=== PATIENT | female | born 1990 | race Caucasian/White ===

== ENCOUNTER 2021-10-10 17:12 | Inpatient (IN) ==
[2021-10-10] MEDS ORDERED: OXYTOCIN 30 UNITS/500 ML BAG IV PRN ×2 (19:43)
--- NOTE | 2021-10-10 19:46 | History & Physical Report ---
Date of Service October 10, 2021 Assessment & Plan (1) Insulin controlled gestational diabetes mellitus (GDM) during : (2) : Plan: 31 y/o G1 at 39 5/7 wga presents for r/o rom VSS Fetus cat 1 r/o ROM - cannot definitively say rom occurred however there is still more bleeding than expected following cervical check. Pt is set to be induced tomorrow so will admit tonight, let her eat dinner and start pitocin overnight when able A2GDM - q2h BG, plan for q1 in active labor GBS neg epidural PRN History of Present Illness Chief Complaint: IOL Primary Care Provider: NO PCP 31 y/o G1 at 39 5/7 wga presented earlier this evening w/ c/o LOF a few hours after being checked in the office. +FM, ctx and some bleeding as well. Initial exam was inconclusive for rupture and so pt was regraced and exam was re-done, could not find evidence of rupture however pt continued to have more bleeding than expected given check. 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 Menarche 11, q28d cycles Denies hx STIs Denies hx abnl pap, 01/2021 neg cotest Allergies Allergy/AdvReac Type Severity Reaction Status Date / Time No Known Allergies Allergy Verified 10/10/21 10:17 Home Medications Medication Instructions Recorded Confirmed Type insulin detemir U-100 100 unit/mL 4 unit SUBCUT HS 09/12/21 10/10/21 History subcutaneous solution (Levemir U-100 Insulin) prenat.vits,monico,[id number] 1 tab PO DAILY 09/12/21 10/10/21 History breast pump #1 ea 09/24/21 10/10/21 Rx Patient History Medical History IUGR (intrauterine growth restriction) Low maternal weight gain Varicella vaccine Surgical History No history of previous surgery No significant past surgical history Family History Mother Diabetes Denies family history of Ovarian cancer Breast cancer Lung cancer Cancer Hypertension Social History Smoking Status: Never smoker Hx Alcohol Use: No Hx Substance Use: No Preferred Language: Syriac Communication Ability: Effective Communication Tools: IPad Visual Impairment: Partially Limited Hearing Ability: Normal 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 Beliefs That Will Affect Care: None marital status: marital status details: Kay Pak (33) [phone] Current Living Situation: Spouse Current Living Situation Comment: , no pets current occupational status: unemployed Other Information That Helps Us Care for You: No Feels Safe at Home: Yes Safety Concerns: Feels Safe At This Time Do you think of yourself as: straight/heterosexual Gender Identity: Female Assistive Devices: None Physical Exam Genitourinary: OB Exam Abdomen: + vertex and + estimated weight (6-7) Manual OB Exam: + cervical dilation 3 cm, + cervical effacement 50% and + station -2 OB Exam Monitor Tracing: + external FHT monitor used, + external uterine monitor used (q4-6) and + category I (150/mod/+accel/-decel) SSE - dark blood in vault, 3 large procto swabs used to clear blood but still difficult to visualize cervix in its entirety. Nitrazine not performed due to bleeding, no clear pooling, neg ferning Results & Data ([facility]) Vital Signs (Past 12 Hours) Vital Signs Temp Pulse Resp BP 10/10/21 18:55 98.4 F 20 10/10/21 18:54 72 104/60 10/10/21 17:20 97.7 F 72 16 101/60 Laboratory Results OB Optional Labs: No Data to Display Labs Reviewed: Glucose 07/02/21 *fasting 84 *1 hour 216 *2 hour 156 *3 hour 152 Glucose 06/27/21 *1 hour 168 [id number] PLUS Core + SCA 05/16/21 (NIPT) * WNL NuSwab Vaginitis *Normal Initial OB Labs 02/26/21 Blood Type & RH - A positive Antibody Screen - negative HCT/HGB - 13.6/38.3 Platelets - 293 Hep C IgG 13yrs+ Old - negative Pap Test - HPV negative Chlamydia - negative Gonorrhea - negative Rubella - immune RPR - non reactive Urine Culture/Screen - Normal HBsAg - negative HIV - negative MCV - 88 Ultrasound -hemoglobin electrophoresis wnl 06/28 H/H 11.3/34.8 PLT 288 anatomy - SGA 13% anatomy, 5% at 24 weeks 07/24/21 - IGS 14%, glucose log normal 08/16/21 - IGS 8% GBS neg Coding Level of Care Code None Diagnoses Insulin controlled gestational diabetes mellitus (GDM) during O24.414 Z34.90
[2021-10-10 20:06] LABS: Hematocrit (blood only) 37.2 % (37-47); Hemoglobin 12.6 g/dL (12.0-16.0); Mean Corpuscular Hemoglobin 32.1 pg (25-34); Mean Corpuscular Hgb Conc 33.9 g/dL (32-36); Mean Corpuscular Volume 94.7 fL (80-100); Mean Platelet Volume 11.1 fL (7.4-10.4); Platelet Count 228 K/uL (130-400); RDW Coefficient of Variation 14.6 % (11.5-14.5); Red Blood Count 3.93 M/uL (4.2-5.4); White Blood Count 10.72 K/uL (4.8-10.8)
[2021-10-11] MEDS: LACTATED RINGER'S 1,000 ML IV PRN ×3 (08:20→20:40)
[2021-10-11] MEDS ORDERED: ePHEDrine sulfate 50 MG/ML AMP ONE (12:34)
[2021-10-11] MEDS ORDERED: BUPIVACAINE 0.25% 30 ML VIAL ONE (12:35)
[2021-10-11] MEDS ORDERED: fentaNYL citrate 100 MCG/2 ML VIAL ONE (12:35)
[2021-10-11] MEDS ORDERED: SODIUM CHLORIDE 0.9% INJ 10 ML VIAL ONE (12:35)
[2021-10-11] MEDS ORDERED: fentaNYL 2MCG/ML ROPIVACAINE 1.25MG/ML 100 ML BAG EPI ONE (12:36)
[2021-10-11] MEDS ORDERED: fentaNYL 2MCG/ML ROPIVACAINE 1.25MG/ML 100 ML BAG EPI PRN (12:56)
[2021-10-11] MEDS ORDERED: NALOXONE HCL 0.4 MG/1 ML VIAL/CARP IV PRN (12:56)
[2021-10-11] MEDS ORDERED: diphenhydrAMINE 50 MG/ML VIAL IV PRN (12:56)
[2021-10-11] MEDS ORDERED: NALOXONE HCL 1 MG in SODIUM CHLORIDE 0.9% 1000ML 1,000 ML IV PRN (12:56)
[2021-10-11] MEDS ORDERED: NALBUPHINE HCL INJ 10 MG/ML AMP IV PRN (12:56)
[2021-10-11] MEDS ORDERED: ePHEDrine sulfate 50 MG/ML AMP IV PRN (12:56)
[2021-10-11] MEDS ORDERED: ONDANSETRON INJ 2 MG/ML 2 ML VIAL IV PRN (12:56)
--- NOTE | 2021-10-11 12:56 | Anesthesiology Consultation ---
Date of Service October 11, 2021 Assessment & Plan (1) Encounter for pre-operative examination: Chart Review Chart Review: Acceptable Risk for Surgery and Patient NOT seen in Pre Admission Testing Consults Requested none History Height/Weight Height: 5 ft 2.6 in Weight: 79.107 kg Allergies Allergy/AdvReac Type Severity Reaction Status Date / Time No Known Allergies Allergy Verified 10/10/21 10:17 Medications Home Medications Medication Instructions Recorded Confirmed Last Taken insulin detemir U-100 100 unit/mL 4 unit SUBCUT HS 09/12/21 10/10/21 10/09/21 23:00 subcutaneous solution (Levemir U-100 Insulin) prenat.vits,monico,[id number] 1 tab PO DAILY 09/12/21 10/10/21 10/09/21 16:00 breast pump #1 ea 09/24/21 10/10/21 Unknown Active Medications Generic Name Dose Route Start Last Admin Trade Name Freq PRN Reason Stop Dose Admin Lactated Ringer's 1,000 mls @ 125 mls/hr 10/10/21 19:43 10/11/21 08:20 Lr IV 10/12/21 19:42 125 mls/hr .Q8H PRN Administration L&D Protocol Protocol Oxytocin 30 units in 500 mls @ 14 mls/hr 10/10/21 19:43 10/11/21 11:47 Pitocin IV 10/12/21 19:42 0.84 units/hr .Q24H PRN 14 mls/hr Labor Induction/Augmentation Titration Protocol 0.84 UNITS/HR Past Medical History Medical History IUGR (intrauterine growth restriction) Low maternal weight gain Varicella vaccine Past Family History Family History Mother Diabetes Denies family history of Ovarian cancer Breast cancer Lung cancer Cancer Hypertension Past Surgical History Surgical History No history of previous surgery No significant past surgical history Social History Smoking Status: Never smoker Hx Alcohol Use: No Hx Substance Use: No substance use type: does not use Physical Exam Vital Signs Last Vital Signs Temp 36.5 C 10/11/21 11:04 Pulse 67 10/11/21 12:32 Resp 18 10/11/21 11:04 BP 105/60 10/11/21 12:32 Testing Laboratory Results 10/10/21 19:55 10/11/21 10/11/21 10/11/21 12:03 10:03 07:59 POC Glucose 91 94 104 H 10/11/21 10/11/21 10/11/21 06:00 04:44 02:21 POC Glucose 94 94 105 H
--- NOTE | 2021-10-12 00:32 | Delivery Summary ---
Vaginal Delivery Summary Date of Service October 12, 2021 Vaginal Delivery Summary and 2nd Degree LAC Vaginal Delivery Summary: Pre-delivery diagnoses: 31yo @ 39 6/7, IOL for GDMA2 Post-delivery diagnoses: same Procedure: spontaneous vaginal delivery Surgeon: Sheila Bennett DO Complications: none Findings: Viable female . Apgars: 8/9. Weight pending, please see nursery records Estimated blood loss: 400ml Description of delivery: The patient progressed to complete with epidural anesthesia. She then began to push. She spontaneously vaginally delivered a viable from the cephalic presentation. The head delivered in KAREN position. The anterior shoulder delivered, followed by the posterior shoulder, followed by the body. No nuchal. The baby was placed on mother's abdomen and a spontaneous cry was heard. Delayed cord clamping was employed, and the cord was doubly clamped and cut. Cord blood was obtained. The placenta was delivered spontaneously intact with a 3-vessel cord. The uterus and vagina were swept of clots and debris. IV pitocin was given. The uterus became firm. The cervix, vagina, and perineum were inspected and a 2nd degree perineal laceration was reapproximated with 3-0 vicryl in standard fashion. Aamir powder was used along the raw edges to obtain hemostasis. Excellent hemostasis was observed. The mother and baby are recovering in stable and good condition in the room. Sponge, needle and instrument counts were correct x 2. Sheila Bennett DO [id number] Vaginal Delivery Charge Vaginal Delivery Codes: 03379 global code for the antepartum, delivery, and post- Delivery Type Details: and 2nd Degree LAC
[2021-10-12] MEDS ORDERED: bisacodyL 10 MG SUPP PR PRN (00:37)
[2021-10-12] MEDS ORDERED: DIPHTHERIA/TETANUS/PERTUSSIS 0.5 ML SYR/VIAL IM ONE (00:37)
[2021-10-12] MEDS ORDERED: HYDROCORTISONE ACETATE 25 MG SUPP PR PRN (00:37)
[2021-10-12] MEDS ORDERED: oxyCODONE/ACETAMINOPHEN 5mg/325mg TAB PO PRN (00:37)
[2021-10-12] MEDS ORDERED: BENZOCAINE 20% AER SPR 82.5 GM CAN EXT PRN (00:37)
[2021-10-12] MEDS ORDERED: OXYTOCIN 30 UNITS/500 ML BAG IV PRN (00:37)
[2021-10-12] MEDS: IBUPROFEN 600 MG TAB PO PRN ×4 (01:05→23:48)
--- NOTE | 2021-10-12 06:06 | Obstetrical Progress Note ---
Date of Service <Yary Smith DO - Last Filed: 10/12/21 07:36> October 12, 2021 Assessment & Plan <Yary Smith DO - Last Filed: 10/12/21 07:36> (1) Insulin controlled gestational diabetes mellitus (GDM) during : (2) Encounter for care and examination after delivery: 31 yo post op day1 from with GDM, doing well. -Continue routine post care. -vital signs reviewed and WNL (Tmax 36.8) -Blood Type A+, GBS-, Rubella immune -Encourage ambulation, monitor and control pain with Motrin, tylenol PRN, resume regular diet, monitor lochia -encourage breast feeding -hemoglobin 12.6 Day #:: 1 <Sheila Bennett, - Last Filed: 10/12/21 07:55> (1) Insulin controlled gestational diabetes mellitus (GDM) during : (2) Encounter for care and examination after delivery: Subjective <Yary Smith - Last Filed: 10/12/21 07:36> Ambulation: ambulating normally Voiding: voiding difficulty Passing Gas:: Yes Diet Tolerance:: regular diet Lochia:: Small Feeding Type:: breast feeding Current Pain Level(1-10): 0 Review of Systems Denies fever, chills, sweats Denies shortness of breath, difficulty breathing, chest pain, palpitations, chest pressure. Denies breast pain. Denies dysuria. Denies headache or changes in vision. Physical Exam <Yary Smith - Last Filed: 10/12/21 07:36> General: Alert, oriented. No acute distress. Cardiac: Regular rate and rhythm, no murmurs/rubs/gallops. Respiratory: Clear to auscultation bilaterally a/p, no wheezes/rales/rhonchi. No increased work of breathing. Symmetrical chest rise. No respiratory distress. Abdomen: Soft, nontender, nondistended. Bowel sounds present. Uterus: Uterine fundus firm, palpable 1 cm below umbilicus. Lower Extremities: No lower extremity edema or swelling. No deep calf pain. Robert's negative bilaterally.. Results & Data ([facility]) <Yary Luis - Last Filed: 10/12/21 07:36> Vital Signs (Past 12 Hours) Vital Signs Temp Pulse Resp BP BP Pulse Ox 10/12/21 03:00 36.8 C 18 112/68 10/12/21 02:22 111 H 110/62 10/12/21 02:21 36.9 C 18 10/12/21 02:06 118 H 113/52 L 10/12/21 01:51 111 H 18 111/66 10/12/21 01:36 110 H 116/62 10/12/21 01:21 104 H 18 113/62 10/12/21 01:06 99 H 18 121/60 10/12/21 00:51 96 H 16 130/69 10/12/21 00:44 101 H 96 10/12/21 00:39 99 H 96 10/12/21 00:36 100 H 16 128/68 10/12/21 00:34 98 H 97 10/12/21 00:29 101 H 98 10/12/21 00:24 108 H 98 10/12/21 00:21 102 H 16 123/62 10/12/21 00:19 103 H 97 10/12/21 00:14 101 H 97 10/12/21 00:10 101 H 129/62 10/12/21 00:09 105 H 97 10/12/21 00:06 109 H 132/64 10/12/21 00:04 112 H 98 10/11/21 23:59 103 H 97 10/11/21 23:54 114 H 98 10/11/21 23:51 117 H 132/65 10/11/21 23:49 116 H 97 10/11/21 23:44 106 H 78 L 10/11/21 23:39 108 H 97 10/11/21 23:37 37.1 C 18 10/11/21 23:36 99 H 125/67 10/11/21 23:35 104 H 91 10/11/21 23:34 100 H 97 10/11/21 23:29 111 H 95 10/11/21 23:24 96 H 96 10/11/21 23:23 101 H 91 10/11/21 23:22 97 H 135/68 10/11/21 23:19 115 H 96 10/11/21 23:14 103 H 95 10/11/21 23:09 106 H 97 10/11/21 23:06 95 H 131/81 10/11/21 23:04 89 98 10/11/21 22:59 102 H 98 10/11/21 22:54 88 98 10/11/21 22:53 95 H 94 10/11/21 22:51 97 H 134/79 10/11/21 22:49 94 H 98 10/11/21 22:44 86 98 10/11/21 22:39 91 H 99 10/11/21 22:37 82 125/76 10/11/21 22:34 87 100 10/11/21 22:29 85 97 10/11/21 22:26 36.5 C 18 10/11/21 22:24 86 98 10/11/21 22:22 85 117/73 10/11/21 22:19 86 97 10/11/21 22:14 85 98 10/11/21 22:09 88 98 10/11/21 22:07 81 127/80 10/11/21 22:04 88 98 10/11/21 22:00 18 10/11/21 21:59 83 99 10/11/21 21:54 79 98 10/11/21 21:52 83 109/62 10/11/21 21:49 85 98 10/11/21 21:44 81 98 10/11/21 21:39 80 98 10/11/21 21:37 78 108/60 10/11/21 21:34 82 98 10/11/21 21:29 83 97 10/11/21 21:24 83 95 10/11/21 21:22 86 107/59 L 10/11/21 21:19 88 97 10/11/21 21:14 83 96 10/11/21 21:09 82 98 10/11/21 21:08 84 111/59 L 10/11/21 21:04 84 98 10/11/21 20:59 86 96 10/11/21 20:54 83 96 10/11/21 20:52 83 114/57 L 10/11/21 20:49 82 98 10/11/21 20:44 86 97 10/11/21 20:42 36.8 C 18 10/11/21 20:39 88 98 10/11/21 20:37 79 110/61 10/11/21 20:34 81 98 10/11/21 20:29 81 98 10/11/21 20:24 80 98 10/11/21 20:22 73 106/58 L 10/11/21 20:19 81 97 10/11/21 20:14 77 96 10/11/21 20:09 79 97 10/11/21 20:06 77 106/62 10/11/21 20:04 73 98 10/11/21 19:59 74 96 10/11/21 19:54 87 97 10/11/21 19:51 79 126/81 10/11/21 19:49 75 97 10/11/21 19:44 76 97 10/11/21 19:39 72 97 10/11/21 19:36 88 117/79 10/11/21 19:34 77 98 10/11/21 19:29 80 96 10/11/21 19:24 77 97 10/11/21 19:23 81 117/68 10/11/21 19:19 76 98 10/11/21 19:14 78 97 10/11/21 19:10 37.0 C 18 10/11/21 19:09 84 97 10/11/21 19:07 80 112/68 10/11/21 19:04 78 97 10/11/21 18:59 78 98 10/11/21 18:55 20 10/11/21 18:54 82 97 10/11/21 18:53 80 110/66 10/11/21 18:49 78 96 10/11/21 18:44 80 96 10/11/21 18:39 76 96 10/11/21 18:38 78 90/50 L 10/11/21 18:34 75 95 10/11/21 18:29 75 96 10/11/21 18:25 18 10/11/21 18:24 78 96 10/11/21 18:23 76 94 10/11/21 18:19 75 94 10/11/21 18:15 74 89/50 L 10/11/21 18:14 74 96 10/11/21 18:10 18 10/11/21 18:09 77 97 <Sheila Bennett, DO - Last Filed: 10/12/21 07:55> Co-Signing Physician Notes Resident Physician Supervision Note: I was present with Dr. Smith during the history and exam. I discussed the case with the resident and agree with the findings and plan as documented in the note. Any exceptions or clarifications are listed here: PPD#1 doing well. Anticipate DC home tomorrow. Documented By: Sheila Bennett DO Resident Activity Tracking <Yary Smith DO - Last Filed: 10/12/21 07:36> Resident Involvement: Resident Care Provided Care Provided: Adult [facility]
--- NOTE | 2021-10-12 06:36 | Anesthesia Procedure Note ---
Date of Service October 12, 2021 Anesthesia Post Epidural Note Vital Signs Vital Signs: Temp Pulse Resp BP Pulse Ox 36.8 C 111 H 18 112/68 96 10/12/21 03:00 10/12/21 02:22 10/12/21 03:00 10/12/21 03:00 10/12/21 00:44 Pain Intensity Bilateral Abdomen: Pain Intensity: 1 Notes Mental Status: alert / awake / arousable and participated in evaluation Nausea / Vomiting: adequately controlled Pain: adequately controlled Airway Patency, RR, SpO2: stable & adequate BP & HR: stable & adequate Hydration State: stable & adequate Neuraxial Anesthesia: was administered and sensory block is resolving Anesthetic Complications: no major complications apparent and Pt Satisfied with anesthetic care Epidural: Removed without complications and With tip intact Notes: Epidural site clean, dry and intact. No signs of edema, erythema but very small bruise at insertion site. Pt instructed to request anesthesia if she has residual lower extremity numbness or if she develops lower extremity pain or weakness, back pain or headache.
[2021-10-12] MEDS: DOCUSATE SODIUM 100 MG CAP PO SCH ×2 (07:56→20:25)
[2021-10-12] MEDS: PRENATAL VITAMIN 1 TAB PO SCH (07:56)
[2021-10-12] MEDS: ACETAMINOPHEN 325 MG TAB PO PRN ×2 (08:08→16:28)
--- NOTE | 2021-10-13 05:54 | Obstetrical Progress Note ---
Date of Service October 13, 2021 Assessment & Plan (1) Encounter for care and examination after delivery: (2) Urinary retention: Doing well. PLan d/c harris this am and should void. Routine care. Day #:: 2 Subjective Ambulation: ambulating normally Voiding: harris catheter in place Passing Gas:: Yes Diet Tolerance:: regular diet Lochia:: Small Feeding Type:: breast feeding (with supplement) Physical Exam Constitutional WD/WN, vitals as above Cardiovascular Extremities: + edema (tr); no calf tenderness Gastrointestinal (Abdomen) soft, nt, nd, ff/nt at u Psychiatric A+Ox3, euthymic affect Results & Data ([facility]) Vital Signs (Past 12 Hours) Vital Signs Temp Pulse Resp BP Pulse Ox 10/12/21 23:50 36.3 C L 76 14 97/63 L 10/12/21 23:05 37 C 81 16 100/68 96 10/12/21 19:20 36.9 C 89 20 97/59 L 97 10/12/21 19:03 36.8 C 94 H 14 104/64 97
[2021-10-13 06:42] LABS: Hematocrit (blood only) 32.3 % (37-47); Hemoglobin 10.6 g/dL (12.0-16.0)
[2021-10-13] MEDS: PRENATAL VITAMIN 1 TAB PO SCH (07:38)
[2021-10-13] MEDS: IBUPROFEN 600 MG TAB PO PRN ×2 (07:38→14:31)
[2021-10-13] MEDS: DOCUSATE SODIUM 100 MG CAP PO SCH (07:38)
[2021-10-13] MEDS ORDERED: bisacodyL 5 MG TABEC PO SCH (20:00)
== END 2021-10-13 20:13 | disposition home or self-care (01) | DRG 807 ==
LOC: OPB 17:12 → 4S1 17:13 → 4S2 10-12 03:33